=== PATIENT | female | born 1965 | race Caucasian/White ===

== ENCOUNTER → 2018-06-19 | Day surgery (SDC) | payer OTHER ==
[~2018-06-19] VITALS: Ht 167.6 cm; Wt 93.5 kg
[~2018-06-19] MED LIST: ALBU8HFA IH; ALBUTEROL SULFATE 2.5 MG/0.5 ML NEB SOLUTION NEB ONE; ARIP2 PO; BECL10.62 IH; BENZOCAINE 20% 50 MCG/SPRAY 57 GM TP ONE; CORT80VI2 SQ; CYCL12OS OU; DICL75TA5 PO; DOXY25SU3 PO; DULO60CA44 PO; FLUT16H NASAL; FLUT1AER5 PO; FentaNYL CITRATE-PF 100 MCG/2 ML VIAL ONE; GABA-531 PO; IBUP-2071 PO; LIDOCAINE 2% 11 ML JELLY TP ONE; LIDOCAINE 4% 50 ML SOLUTION TP ONE; LUBI24CA2 PO; MIDAZOLAM HCL 2 MG/2 ML VIAL ONE; MONT10TA21 PO; MethylPREDNISolone SOD SUCC 125 MG/2 ML VIAL IVP ONE; MethylPREDNISolone SOD SUCC 125 MG/2 ML VIAL ONE; NEOSOS OU; OMEP20 PO; OXYGEN THERAPY IH SCH; PRED5 PO; SODIUM CHLORIDE 0.9% 1,000 ML IV ONE; TIOT4MIS2 PO; ZOLP10TA7 PO
== END | disposition home or self-care (01) ==
LOC: SURGERY 06:23
PROVIDERS: ATTEND Internal Medicine Critical Care Medicine
DX: J38.4 Edema of larynx (principal); B37.0 Candidal stomatitis; M19.90 Unspecified osteoarthritis, unspecified site; Z98.890 Other specified postprocedural states
CPT/HCPCS: 31623; 31624; 71045; 87015; 87070; 87101; 87206; 87220; 88108; 88312; J2250; J2930; J3010